=== PATIENT | male | born 1955 | race Caucasian/White ===

== ENCOUNTER 2022-01-02 06:57 | Day surgery (SDC) | payer BC ==
[2022-01-02] MEDS ORDERED: LIPITOR20 M1 PO (07:55)
[2022-01-02] MEDS ORDERED: LISINOPRIL10 MG PO (07:55)
[2022-01-02] MEDS ORDERED: NORVASC5 M1 PO (07:56)
[2022-01-02] MEDS ORDERED: LASIX 40 MG TAB40 MG PO (07:56)
[2022-01-02] MEDS ORDERED: KLOR-CON M1010 MEQ PO (07:59)
[2022-01-02] MEDS ORDERED: TIZANIDINE2 MG PO (08:00)
[2022-01-02] MEDS ORDERED: STOOL SOFTE1 PO (08:01)
[2022-01-02] MEDS ORDERED: GABAPENTIN100 MG PO (08:01)
[2022-01-02 11:24] VITALS: BP 161/92
== END 2022-01-02 11:22 | disposition home or self-care (01) | DRG 552 ==
LOC: ORM 06:57
PROVIDERS: ATTEND Physical Medicine & Rehabilitation
DX: M54.16 Radiculopathy, lumbar region (principal); G89.4 Chronic pain syndrome; M51.36 Other intervertebral disc degeneration, lumbar region; M51.26 Other intervertebral disc displacement, lumbar region; M62.838 Other muscle spasm
CPT/HCPCS: J1100; Q9967

== ENCOUNTER 2022-02-13 06:48 | Day surgery (SDC) | payer BC ==
[~2022-02-13] VITALS: Ht 177.8 cm; Wt 103.4 kg
[~2022-02-13 06:48] MED LIST: GABAPENTIN100 MG PO; KLOR-CON M1010 MEQ PO; LASIX 40 MG TAB40 MG PO; LIPITOR20 M1 PO; LISINOPRIL10 MG PO; NORVASC5 M1 PO; STOOL SOFTE1 PO; TIZANIDINE2 MG PO
[2022-02-13 09:56] VITALS: BP 180/105
== END 2022-02-13 09:19 | disposition home or self-care (01) | DRG 552 ==
LOC: ORM 06:48
PROVIDERS: ATTEND Physical Medicine & Rehabilitation
DX: M51.36 Other intervertebral disc degeneration, lumbar region (principal); G89.4 Chronic pain syndrome

== ENCOUNTER 2022-04-24 07:52 | Day surgery (SDC) | payer MEDICARE, BC ==
[~2022-04-24] VITALS: Ht 177.8 cm; Wt 101.6 kg
[2022-04-24 11:17] VITALS: BP 142/82
== END 2022-04-24 11:21 | disposition home or self-care (01) ==
LOC: ORM 07:52
PROVIDERS: ATTEND Physical Medicine & Rehabilitation
DX: M47.816 Spondylosis without myelopathy or radiculopathy, lumbar region (principal); G89.4 Chronic pain syndrome; Z20.822 Contact with and (suspected) exposure to COVID-19

== ENCOUNTER 2022-05-22 07:28 | Day surgery (SDC) | payer MEDICARE, BC ==
[~2022-05-22] VITALS: Ht 177.8 cm; Wt 100.7 kg
[2022-05-22 13:26] VITALS: BP 128/67
== END 2022-05-22 11:12 | disposition home or self-care (01) ==
LOC: ORM 07:28
PROVIDERS: ATTEND Physical Medicine & Rehabilitation
DX: M47.816 Spondylosis without myelopathy or radiculopathy, lumbar region (principal); G89.4 Chronic pain syndrome; M51.36 Other intervertebral disc degeneration, lumbar region; M62.838 Other muscle spasm; Z01.818 Encounter for other preprocedural examination; Z11.59 Encounter for screening for other viral diseases